=== PATIENT | male | born 1990 | race Caucasian/White ===

== ENCOUNTER 2021-10-07 18:40 | Emergency (ER) | payer OTHER ==
[2021-10-07 19:08] VITALS: BP 121/81; PULSE 73; RESP 16; TEMP 98; BMI 25.0
[2021-10-07] MEDS ORDERED: LIDOCAINE HCL 1%, 10 MG/ML (20ML VIAL) ONE (20:06)
[2021-10-07] MEDS ORDERED: AZITHROMYCIN 500 MG TABLET PO ONE (20:51)
[2021-10-07] MEDS ORDERED: LIDOCAINE HCL 1%, 10 MG/ML (50 mL VIAL) SQ ONE (20:53)
[2021-10-07] MEDS ORDERED: AZITHROMYCIN 250 MG TABLET ONE (20:54)
== END 2021-10-07 21:00 | disposition home or self-care (01) ==
LOC: FER 18:40
PROC: 3E023GC Introduction of Other Therapeutic Substance into Muscle, Percutaneous Approach (ICD-10-PCS; principal; 2021-10-07)
DX: S61.247A Puncture wound with foreign body of left little finger without damage to nail, initial encounter (principal); W45.8XXA Other foreign body or object entering through skin, initial encounter
CPT/HCPCS: 99283-25